=== PATIENT | male | born 1965 | race Two or more races ===

== ENCOUNTER 2023-12-25 13:23 | Observation (INO) | payer OTHER ==
[~2023-12-25] VITALS: Ht 172.7 cm; Wt 138.3 kg
[2023-12-25] MEDS: PIPERACILLIN-TAZOB 3.375GM 100 ML IV SCH
[2023-12-25 14:37] LABS: Basophils # (auto) 0.1 10 ^3/uL (0-0.2); Basophils % (auto) 0.5 % (0.0-2.0); Eosinophils # (auto) 0.1 10 ^3/uL (0-0.8); Hematocrit 47.4 % (41.0-53.0); Hemoglobin 16.6 g/dL (13.5-17.5); Lymphocytes # (auto) 3.7 10 ^3/uL (0.4-5.4); Lymphocytes % (auto) 25.3 % (10.0-50.0); Mean Corpuscular Hemoglobin 33.8 pg (28.0-32.0); Mean Corpuscular Hgb Conc. 35.1 g/dL (32.0-36.0); Mean Corpuscular Volume 96.4 fL (80.0-100.0); Monocytes # (auto) 1.3 10 ^3/uL (0-1.3); Monocytes % (auto) 8.8 % (0.0-12.0); Neutrophils # (auto) 9.3 10 ^3/uL (1.6-8.6); Neutrophils % (auto) 64.4 % (37.0-80.0); Platelet Count (auto) 221 10^3/uL (140-450); Red Blood Cells 4.92 10^6/uL (4.5-5.90); White Blood Cell 14.5 10^3/uL (4.4-10.8)
[2023-12-25 14:38] LABS: Urine Bacteria None Seen /hpf (None Seen)
[2023-12-25 14:53] LABS: Alanine Aminotransferase 28 U/L (7-40); Albumin 4.6 g/dL (3.2-4.8); Alkaline Phosphatase 104 U/L (46-116); Anion Gap 8 (5-15); Aspartate Aminotransferase 19 U/L (13-40); BUN/Creatinine Ratio 15.7 (10.0-20.0); Blood Urea Nitrogen 14 mg/dL (9-23); Calcium 10.1 mg/dL (8.7-10.4); Carbon Dioxide 28 mmol/L (20-31); Chloride 103 mmol/L (98-107); Glucose 205 mg/dL (74-106); Potassium 3.7 mmol/L (3.5-5.1); Sodium 139 mmol/L (136-145)
[2023-12-25 14:54] LABS: Bilirubin, Total 0.5 mg/dL (0.2-1.0); Total Protein 8.2 g/dL (5.7-8.2)
[2023-12-25 15:04] LABS: Urine Blood TRACE /uL (Negative); Urine Clarity Clear (Clear); Urine Color Yellow (Yellow); Urine Mucus FEW (None Seen); Urine Protein, UAD 1+ (Negative); Urine Specific Gravity 1.029 (1.001-1.035); Urine Urobilinogen 2 mg/dL (Negative); Urine WBC 4 /hpf (0 - 3)
--- NOTE | 2023-12-25 15:39 | DVH ---
Procedure: CT LS SPINE WO CONTRAST 12/25/2023 02:16 PM Indication:BILATERAL LOWER BACK PAIN. Comparison Study: None. Technique: Axial images were obtained and reformatted in coronal and sagittal planes. All CT scans at this medical facility are performed using dose modulation techniques as appropriate t o a performed exam including the following: Automated exposure control was utilized; adjustment of th e MA and/or KV according to patient size; and use of iterative reconstruction technique. CT Dose: CTDI volume is 38.94 mGy. Dose-length product is 1145.87 mGy*cm FINDINGS: Age-indeterminate severe central compression deformity of L3 with near-complete loss of height, assoc iated 4 mm retropulsion and sclerotic sclerotic changes of the bone. Vacuum phenomenon is seen L2-L3 disc space. Bridging anterior osteophytes are seen on the right and left aspects of L3-L4. The post erior elements are intact. Chronic moderate compression deformity of L1 with approximately 40% loss of height centrally status p ost vertebroplasty. No pars defect. Multilevel degenerative disc disease and posterior facet arthropathy noted with mild osseous central canal stenosis and varying degrees of neural foramina stenosis, severe in the right L 3-L4 and moderate in the left L3-L4 foramina. Atherosclerotic calcification of the abdominal aorta and iliac arteries noted. No aneurysm. An infra renal IVC filter is in place. IMPRESSION: 1. Age-indeterminate severe compression fracture of L3 with near-complete loss of height centrally, 4 mm retropulsion and sclerotic changes of the vertebral body. Correlate with history. This can be fu rther evaluated MRI if clinically warranted. 2. Chronic moderate L1 compression deformity status post vertebroplasty. No retropulsion. 3. Multilevel degenerative disc disease and posterior facet arthropathy with moderate to severe neura l foramina stenosis at L3-L4 level.
--- NOTE | 2023-12-25 15:53 | ED.PDOC ---
History of Present Illness HPI Comments This 58-year-old male presents secondary to several day history of bilateral lower back pain that radiates down the posterior aspect of both thighs legs to his feet. He denies incontinence retention the PCO urine. Denies numbness, tingling or weakness to his extremities. The pain waxes and wanes. Pain is worse with prolonged ambulation and standing is somewhat better with rest. Chief Complaint: Back Pain Time Seen by MD: 13:32 Primary Care Provider: MARILY Reviewed Notes: Nurses Notes Allergies: Coded Allergies: NO KNOWN ALLERGIES (Unverified , 12/25/23) Mode of Arrival: Ambulatory Constitutional: denies: chills, diaphoresis, fatigue, fever, malaise, sweats, weakness, others EENTM: reports: blurred vision; denies: double vision, ear bleeding, ear discharge, ear drainage, ear pain, ear ringing, eye pain, eye redness, hearing loss, mouth pain, mouth swelling, nasal discharge, nose bleeding, nose congestion, nose pain, photophobia, tearing, throat pain, throat swelling, voice changes, others Respiratory: denies: cough, hemoptysis, orthopnea, SOB at rest, shortness of breath, SOB with excertion, stridor, wheezing, others Cardiovascular: denies: chest pain, dizzy spells, diaphoresis, Dyspnea on exertion, edema, irregular heart beat, left arm pain, lightheadedness, palpitations, PND, syncope, others Gastrointestinal: denies: abdomen distended, abdominal pain, blood streaked bowels, constipated, diarrhea, dysphagia, difficulty swallowing, hematemesis, melena, nausea, poor appetite, poor fluid intake, rectal bleeding, rectal pain, vomiting, others Neurological: denies: dizziness, fainting, headache, left sided numbness, left sided weakness, numbness, paresthesia, pre-existing deficit, right sided numbness, right sided weakness, seizure, speech problems, tingling, tremors, weakness, others Musculoskeletal: reports: back pain; denies: joint pain, joint swelling, muscle pain, muscle stiffness, neck pain Physical Exam General Appearance: No Apparent Distress, Normal HEENT: Head, Normal ENT Inspection, PERRL/EOMI, Pharynx Normal, Photophobia Neck: Full Range of Motion, Non-Tender, Normal, Normal Inspection Respiratory: Chest Non-Tender, Lungs Clear, No Accessory Muscle Use, No Respiratory Distress, Normal Breath Sounds Cardiovascular: No Edema, No JVD, No Murmur, No Gallop, Normal Peripheral Pulses, Regular Rate/Rhythm Breast Exam: Deferred Gastrointestinal: No Organomegaly, Non Tender, No Pulsatile Mass, Normal Bowel Sounds, Soft Genitalia: Deferred Pelvic: Deferred Rectal: Deferred Extremities: No calf tenderness, Normal capillary refill, Normal inspection, Normal range of motion, Non-tender, No pedal edema Neurologic: Alert, care consultant II-XII nml as Tested, No Motor Deficits, Normal Affect, Normal Mood, No Sensory Deficits Cerebellar Function: Normal Reflexes: NOT DONE Skin: Dry, Normal Color, Warm Lymphatic: NOT DONE Was a procedure done? Was a procedure done?: No Differential Dx Considerations may include: cuada Equina, paraspinal abscess, sciatica, spinal stenosis X-Ray, Labs, Meds, VS Vital Signs Date Time Temp Pulse Resp B/P (MAP) Pulse Ox O2 Delivery O2 Flow Rate FiO2 12/25/23 13:33 98.9 100 18 132/98 (109) 94 Lab Test 12/25/23 14:10 12/25/23 13:36 Range/Units White Blood Count 14.5 H 4.4-10.8 10^3/uL Red Blood Count 4.92 4.5-5.90 10^6/uL Hemoglobin 16.6 13.5-17.5 g/dL Hematocrit 47.4 41.0-53.0 % Mean Corpuscular Volume 96.4 80.0-100.0 fL Mean Corpuscular Hemoglobin 33.8 H 28.0-32.0 pg Mean Corpuscular Hemoglobin Concent 35.1 32.0-36.0 g/dL Red Cell Distribution Width 14.0 11.8-14.3 % Platelet Count 221 140-450 10^3/uL Mean Platelet Volume 9.9 6.9-10.8 fL Neutrophils (%) (Auto) 64.4 37.0-80.0 % Lymphocytes (%) (Auto) 25.3 10.0-50.0 % Monocytes (%) (Auto) 8.8 0.0-12.0 % Eosinophils (%) (Auto) 1.0 0.0-7.0 % Basophils (%) (Auto) 0.5 0.0-2.0 % Neutrophils # (Auto) 9.3 H 1.6-8.6 10 ^3/uL Lymphocytes # (Auto) 3.7 0.4-5.4 10 ^3/uL Monocytes # (Auto) 1.3 0-1.3 10 ^3/uL Eosinophils # (Auto) 0.1 0-0.8 10 ^3/uL Basophils # (Auto) 0.1 0-0.2 10 ^3/uL Nucleated Red Blood Cells 0.0 % Sodium Level 139 136-145 mmol/L Potassium Level 3.7 3.5-5.1 mmol/L Chloride Level 103 98-107 mmol/L Carbon Dioxide Level 28 20-31 mmol/L Anion Gap 8 5-15 Blood Urea Nitrogen 14 9-23 mg/dL Creatinine 0.89 0.700-1.30 mg/dL Glomerular Filtration Rate Calc 99 >90 mL/min BUN/Creatinine Ratio 15.7 10.0-20.0 Serum Glucose 205 H 74-106 mg/dL Calcium Level 10.1 8.7-10.4 mg/dL Total Bilirubin 0.5 0.2-1.0 mg/dL Aspartate Amino Transferase (AST) 19 13-40 U/L Alanine Aminotransferase (ALT) 28 7-40 U/L Alkaline Phosphatase 104 46-116 U/L Total Protein 8.2 5.7-8.2 g/dL Albumin 4.6 3.2-4.8 g/dL Urine Color Yellow Yellow Urine Clarity Clear Clear Urine pH 6.0 5.0-9.0 Urine Specific [place] 1.029 1.001-1.035 Urine Protein 1+ H Negative Urine Ketones Trace Negative Urine Blood Trace H Negative /uL Urine Nitrite Negative Negative Urine Bilirubin Negative Negative Urine Urobilinogen 2 H Negative mg/dL Urine Leukocyte Esterase Negative Negative /uL Urine RBC 5 0 - 3 /hpf Urine WBC 4 0 - 3 /hpf Urine Squamous Epithelial Cells Few <5 /hpf Urine Bacteria None seen None Seen /hpf Urine Mucus Few None Seen Urine Glucose 2+ H Normal mg/dL X-Ray, Labs, Meds, VS Comment This 58-year-old male presents secondary to bilateral lower back pain that ra diates down the posterior thighs to his feet. Patient complains of pain is unclear whether not he has any weakness of extremities. Initially, the patient is very adamant that he did not. He denies incontinence or retention feces and urine. He is working. Significant for elevated white count and multiple others findings to his spine including retropulsion at 4 mm, L1 compression fracture and L3 compression fracture. He was provided with vancomycin and Zosyn certainly concerning for a possible paraspinal abscess. I discussed the patient with the hospitalist for possible admission for further workup including MRI. Time of 1ST Reevaluation: 17:29 Reevaluation 1ST: Unchanged Patient Education/Counseling: Diagnosis, Treatment, Prognosis Family Education/Counseling: No Family Present Sepsis Sepsis Reasesment Focused Exam Sepsis focused exam: focus exam completed Departure 1 Departure Time of Disposition: 17:51 Impression: Primary Impression: Lumbar radiculopathy Additional Impressions: Musculoskeletal pain Compression fracture Spinal stenosis Disposition: [facility] Condition: Fair Critical Care Note Critical Care Time?: No Stability Stability form required: No Heart Score Heart Score: Heart Score Response (Comments) Value History N/A 0 EKG N/A 0 Age N/A 0 Risk Factors N/A 0 Troponin N/A 0 Total 0 KENNEDY DEL VALLE BS Dec 25, 2023 15:53
[2023-12-25] MEDS ORDERED: VANCOMYCIN PER PHARMACY 0 MG IV SCH (18:30)
[2023-12-25] MEDS ORDERED: MORPHINE SULFATE INJ 2 MG/ml SYRG IV PRN ×2 (18:30)
[2023-12-25] MEDS ORDERED: HYDROcodone-ACET 5/325MG TAB PO PRN ×2 (18:30→23:15)
[2023-12-25] MEDS ORDERED: ACETAMINOPHEN 325 MG TAB PO PRN (18:30)
[2023-12-25] MEDS ORDERED: NITROGLYCERIN 0.4 MG SL TAB SL PRN (18:30)
[2023-12-25] MEDS ORDERED: PIPERACILLIN-TAZOB 3.375GM 100 ML IV ONE (18:30)
[2023-12-25 18:43] VITALS: PULSE 78; RESP 18; O2SAT 94
[2023-12-25] MEDS: CYCLOBENZAPRINE HCL 10 MG TAB PO ONE (18:44)
[2023-12-25] MEDS: KETOROLAC TROMETH 30 MG/ML 1ML VIAL IM ONE (18:53)
[2023-12-25] MEDS: PIPERACILLIN-TAZOB 3.375GM 100 ML IV ONE (18:54)
[2023-12-25] MEDS: VANCOMYCIN 1GM/200ML PREMIX 200 ML IV ONE (20:07)
[2023-12-25 22:39] VITALS: BP 111/64; PULSE 68; RESP 17; TEMP 97.7; O2SAT 95
[2023-12-25] MEDS ORDERED: DEXTROSE (50%) 50ML SYRG IV PRN (23:00)
[2023-12-25] MEDS ORDERED: HYDROcodone-ACET 10/325MG TAB PO PRN (23:15)
[2023-12-25] MEDS ORDERED: HYDROmorphone HCL 2 MG/ML VL/or syr IV PRN (23:15)
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
[2023-12-25] MEDS: INSULIN LANTUS (GLARGINE) 1 /0.01ml (100units/ml) SC SCH (23:39)
--- NOTE | 2023-12-26 04:27 | DVHPN2 ---
Progress Note Date Seen: Dec 26, 2023 Has the PT tested + for MRSA If YES, has PT been informed?: No Medical Necessity Reason Pt with a Central, PICC or Fol: No Subjective Review of Systems: MSK:Abnormal Objective vital signs Vital Sign Date Time Temp Pulse Resp B/P (MAP) Pulse Ox O2 Delivery O2 Flow Rate FiO2 12/25/23 22:39 Room Air* 0 21 12/25/23 22:39 97.7 68 17 111/64 (80) 95 97.7 Total Intake and Output 12/25/23 12/25/23 12/26/23 15:00 23:00 07:00 Intake Total 300 ml Balance 300 ml medications Current Medications Medications Dose Ordered Sig/Shantelle Route Start Time Stop Time Status Last Admin Dose Admin Acetaminophen 325 mg Q4HP PRN PO 12/25/23 18:30 Morphine Sulfate 2 mg Q4HPRN PRN IV 12/25/23 18:30 Nitroglycerin 0.4 mg Q5MINP PRN SL 12/25/23 18:30 Morphine Sulfate 2 mg Q30M PRN IV 12/25/23 18:30 Vancomycin HCl 0 ml @ 0 mls/hr UD IV 12/25/23 18:30 Piperacillin Sod/ Tazobactam Sod 100 ml @ 100 mls/hr Q6H IV 12/25/23 00:00 12/26/23 00:12 100 MLS/HR Vancomycin HCl 300 ml @ 200 mls/hr Q12H IV 12/26/23 08:00 Diagnostic Test (Pha) 1 strip ACHS 12/26/23 07:00 Insulin Human Regular HS SC 12/26/23 22:00 Insulin Human Regular AC SC 12/26/23 07:00 Dextrose 50 ml UD PRN IV 12/25/23 23:00 Insulin Glargine 20 units BID SC 12/25/23 23:00 12/25/23 23:39 20 UNITS Lisinopril 40 mg DAILY PO 12/26/23 10:00 Acetaminophen/ Hydrocodone Bitart 1 tab Q4HP PRN PO 12/25/23 23:15 UNV Acetaminophen/ Hydrocodone Bitart 1 tab Q4HPRN PRN PO 12/25/23 23:15 Hydromorphone HCl 0.5 mg Q6HP PRN IV 12/25/23 23:15 Examination: MSK:Abnormal laboratory and microbiology Laboratory Tests 12/25/23 14:10 Test 12/25/23 14:10 Range/Units Serum Glucose 205 H 74-106 mg/dL Problem List/Assessment/Plan Problem List/Assessment/Plan 1) L3 compression Fx, r/o osteomyelitis/discitis 2) HTN 3) DM 4) H/O DVT plan; MRI L spine pending, spine consult ordered, IV ABx broad spectrum with ID consult, daily labs, pain control, supportive care,will follow Plan discussed with: Other (n) ADDY ORTA MD Dec 26, 2023 04:27
[2023-12-26 05:00] VITALS: BP 115/71; PULSE 60; RESP 19; TEMP 97.8; O2SAT 94
[2023-12-26 05:44] LABS: Basophils # (auto) 0.1 10 ^3/uL (0-0.2); Basophils % (auto) 0.7 % (0.0-2.0); Eosinophils # (auto) 0.2 10 ^3/uL (0-0.8); Eosinophils % (auto) 2.1 % (0.0-7.0); Hematocrit 41.8 % (41.0-53.0); Hemoglobin 14.6 g/dL (13.5-17.5); Lymphocytes # (auto) 2.9 10 ^3/uL (0.4-5.4); Lymphocytes % (auto) 29.1 % (10.0-50.0); Mean Corpuscular Hemoglobin 33.9 pg (28.0-32.0); Mean Corpuscular Volume 96.9 fL (80.0-100.0); Monocytes # (auto) 1.2 10 ^3/uL (0-1.3); Monocytes % (auto) 12.2 % (0.0-12.0); Neutrophils # (auto) 5.5 10 ^3/uL (1.6-8.6); Neutrophils % (auto) 55.9 % (37.0-80.0); Nucleated Red Blood Cells % 0.1 %; Platelet Count (auto) 184 10^3/uL (140-450); Red Blood Cells 4.32 10^6/uL (4.5-5.90); White Blood Cell 9.9 10^3/uL (4.4-10.8)
[2023-12-26 06:03] LABS: Alanine Aminotransferase 23 U/L (7-40); Albumin 3.9 g/dL (3.2-4.8); Alkaline Phosphatase 82 U/L (46-116); Anion Gap 8 (5-15); Aspartate Aminotransferase 16 U/L (13-40); BUN/Creatinine Ratio 17.2 (10.0-20.0); Bilirubin, Total 0.6 mg/dL (0.2-1.0); Blood Urea Nitrogen 17 mg/dL (9-23); Calcium 9.3 mg/dL (8.7-10.4); Carbon Dioxide 30 mmol/L (20-31); Chloride 104 mmol/L (98-107); Glucose 141 mg/dL (74-106); Potassium 3.7 mmol/L (3.5-5.1); Sodium 142 mmol/L (136-145); Total Protein 6.8 g/dL (5.7-8.2)
[2023-12-26] MEDS: InsuLIN REG 1unit/0.01ml Soln (100units/ml) SC SCH (06:38)
[2023-12-26] MEDS: ACCU-CHEK COMFORT CURVE STRIP VI SCH (06:38)
[2023-12-26 07:36] LABS: Erythrocyte Sedimentation Rate 9 mm/hr (0-20)
[2023-12-26] MEDS: VANCOMYCIN 1.5GM/300ML 300 ML IV SCH (08:00)
[2023-12-26] MEDS: LISINOPRIL 20 MG TAB PO SCH (08:36)
[2023-12-26 08:46] VITALS: BP 122/80; PULSE 60; RESP 21; TEMP 97.8; O2SAT 91
--- NOTE | 2023-12-26 10:22 | DVH ---
MRI LUMBAR SPINE CLINICAL HISTORY: discitis.osteomyelitis TECHNIQUE: Multi planar, multi sequence MR images of the lumbar spine without intravenous contrast. Comparison: None FINDINGS: There is a compression deformity of the L3 vertebral body with marrow edema compatible with an acute to subacute fracture. There is approximately 60% height loss centrally within the L3 vertebral body. There is no significant posterior retropulsion. There is mild, approximately 20-25% chronic compression deformity of the L1 vertebral body with prior vertebroplasty. Is no significant retropulsion. The remaining lumbar vertebral bodies demonstrate normal height and marrow signal. The conus terminates at an appropriate level and demonstrates normal caliber and signal. There is mil dly exaggerated lumbar lordosis.. There is multilevel disc desiccation with disc space narrowing. The paraspinal soft tissues appear within normal limits. At L1-L2 there is disc bulge without canal or significant foraminal stenosis. At L2-L3 there is disc bulge and bilateral facet arthropathy. There is mild canal stenosis with inden tation of the ventral thecal sac. There is mild bilateral foraminal stenosis, [id number] . At L3-L4 there is disc bulge and bilateral facet arthropathy. There is mild canal stenosis with inden tation of the ventral thecal sac. There is moderate right and [id number] left foraminal stenosi s. At L4-L5 there is bilateral facet arthropathy with ligamentum flavum thickening. There is mild disc b ulge flattening of the ventral thecal sac. There is no canal stenosis. There is no significant fora james stenosis. L5-S1 there is bilateral facet arthropathy and mild disc bulge. Is no canal or significant foraminal stenosis. IMPRESSION: 1. There is an acute to subacute compression deformity of the L3 vertebral body with approximately 60 % height loss centrally. There is no significant posterior retropulsion into the spinal canal. 2. Mild chronic compression deformity of the L1 vertebral body with prior vertebroplasty. 3. Multilevel degenerative changes in the lumbar spine is described in detail by level above. HS:Y
[2023-12-26 11:04] LABS: INR 1.12 (0.9-1.15); Partial Thromboplastin Time 21.7 SEC (24.5-34.5); Prothrombin Time 11.8 sec (9.3-11.8)
--- NOTE | 2023-12-26 12:44 | DVHINCON2 ---
Consultation - Spinal Surgery Date Seen: Dec 26, 2023 History of Present Illness History of Present Illness this patient is admitted to the hospital with complaints of back pain without ra diation down the legs no history of trauma no f/c/night sweats no prior spine surgery no progressive neuro deficit the [place] has actually been getting better for the past few days Allergies and medications Allergies: Coded Allergies: NO KNOWN ALLERGIES (Unverified , 12/25/23) Review of systems Review of Systems: :Normal, MSK:Abnormal, NEURO:Normal Examination Vital signs Vital Signs Date Time Temp Pulse Resp B/P (MAP) Pulse Ox O2 Delivery O2 Flow Rate FiO2 12/26/23 08:46 97.8 60 21 122/80 (94) 91 97.8 12/26/23 08:06 Room Air* 0 21 Medications Current Medications Medications (Trade) Dose Ordered Sig/Shantelle Route PRN Reason Start Time Stop Time Status Last Admin Acetaminophen (Tylenol Tablet) 325 mg Q4HP PRN PO MILD PAIN (1-3 PAIN SCALE) 12/25/23 18:30 Acetaminophen/ Hydrocodone Bitart ([place] 5/325MG Tab) 1 tab Q4HP PRN PO MODERATE PAIN (4-6 PAIN SCALE) 12/25/23 18:30 12/25/23 23:27 DC Morphine Sulfate 2 mg Q4HPRN PRN IV SEVERE PAIN (7-10 PAIN SCALE) 12/25/23 18:30 Hold Nitroglycerin (Ntrostat Sublingual) 0.4 mg Q5MINP PRN SL FOR CHEST PAIN 12/25/23 18:30 Morphine Sulfate 2 mg Q30M PRN IV FOR CHEST PAIN 12/25/23 18:30 Vancomycin HCl 0 ml @ 0 mls/hr UD IV 12/25/23 18:30 Vancomycin HCl 300 ml @ 200 mls/hr Q12H IV 12/26/23 08:00 12/26/23 08:00 Diagnostic Test (Pha) (Accu-Chek Comfort Curve T) 1 strip ACHS 12/26/23 07:00 12/26/23 11:03 Insulin Human Regular (InsuLIN R) HS SC 12/26/23 22:00 Insulin Human Regular (InsuLIN R) AC SC 12/26/23 07:00 12/26/23 11:56 Dextrose 50 ml UD PRN IV Blood Sugar LESS THAN 60 12/25/23 23:00 Insulin Glargine (Lantus) 20 units BID SC 12/25/23 23:00 12/26/23 08:37 Lisinopril (Zestril Tablet) 40 mg DAILY PO 12/26/23 10:00 12/26/23 08:36 Acetaminophen/ Hydrocodone Bitart ([place] 10/325MG Tab) 1 tab Q4HP PRN PO SEVERE PAIN (7-10 PAIN SCALE) 12/25/23 23:15 Acetaminophen/ Hydrocodone Bitart ([place] 5/325MG Tab) 1 tab Q4HPRN PRN PO MODERATE PAIN (4-6 PAIN SCALE) 12/25/23 23:15 Hydromorphone HCl (Dilaudid Injection) 0.5 mg Q6HP PRN IV breakthrough pain 12/25/23 23:15 Laboratory PATIENT: JORDIN MORRIS ACCT: [id number] UNIT: [id number] : 1965 LOC: [facility] ROOM / BED: [facility]ADS / 6 AGE / SEX: 58 / M ADM STATUS: ADM IN SERVICE 6 ORDERING PHYSICIAN: ADDY ORTA MD PROCEDURE(s): MSL - LUMBAR SPINE WO CONTRAST REASON: discitis.osteomyelitis ORDER NUMBER(s): [id number], ACCESSION NUMBER(s): [id number] MRI LUMBAR SPINE CLINICAL HISTORY: discitis.osteomyelitis TECHNIQUE: Multi planar, multi sequence MR images of the lumbar spine without intravenous contrast. Comparison: None FINDINGS: There is a compression deformity of the L3 vertebral body with marrow edema compatible with an acute to subacute fracture. There is approximately 60% height loss centrally within the L3 vertebral body. There is no significant posterior retropulsion. There is mild, approximately 20-25% chronic compression deformity of the L1 vertebral body with prior vertebroplasty. Is no significant retropulsion. The remaining lumbar vertebral bodies demonstrate normal height and marrow signal. The conus terminates at an appropriate level and demonstrates normal caliber and signal. There is mildly exaggerated lumbar lordosis.. There is multilevel disc desiccation with disc space narrowing. The paraspinal soft tissues appear within normal limits. At L1-L2 there is disc bulge without canal or significant foraminal stenosis. At L2-L3 there is disc bulge and bilateral facet arthropathy. There is mild canal stenosis with indentation of the ventral thecal sac. There is mild bilateral foraminal stenosis, [id number]. At L3-L4 there is disc bulge and bilateral facet arthropathy. There is mild canal stenosis with indentation of the ventral thecal sac. There is moderate right and [id number] left foraminal stenosis. At L4-L5 there is bilateral facet arthropathy with ligamentum flavum thickening. There is mild disc bulge flattening of the ventral thecal sac. There is no canal stenosis. There is no significant foraminal stenosis. L5-S1 there is bilateral facet arthropathy and mild disc bulge. Is no canal or significant foraminal stenosis. IMPRESSION: 1. There is an acute to subacute compression deformity of the L3 vertebral body with approximately 60% height loss centrally. There is no significant posterior retropulsion into the spinal canal. 2. Mild chronic compression deformity of the L1 vertebral body with prior vertebroplasty. 3. Multilevel degenerative changes in the lumbar spine is described in detail by level above. HS:Y ATED BY: JERED SHEPPARD MD DICTATED DATE/TIME: 12/26/23 1021 SIGNED BY: JERED SHEPPARD MD SIGNED DATE/TIME: 12/26/23 1021 CC: Labs Test 12/26/23 11:09 12/26/23 10:33 12/26/23 05:14 12/25/23 14:10 Range/Units POC Glucose 176 H 70-106 mg/dl Prothrombin Time 11.8 9.3-11.8 sec Prothrombin Time INR 1.12 0.9-1.15 Activated Partial Thromboplast Time 21.7 L 24.5-34.5 SEC White Blood Count 9.9 # 4.4-10.8 10^3/uL Red Blood Count 4.32 L 4.5-5.90 10^6/uL Hemoglobin 14.6 13.5-17.5 g/dL Hematocrit 41.8 # 41.0-53.0 % Mean Corpuscular Volume 96.9 80.0-100.0 fL Mean Corpuscular Hemoglobin 33.9 H 28.0-32.0 pg Mean Corpuscular Hemoglobin Concent 35.0 32.0-36.0 g/dL Red Cell Distribution Width 14.0 11.8-14.3 % Platelet Count 184 140-450 10^3/uL Mean Platelet Volume 9.6 6.9-10.8 fL Neutrophils (%) (Auto) 55.9 37.0-80.0 % Lymphocytes (%) (Auto) 29.1 10.0-50.0 % Monocytes (%) (Auto) 12.2 H 0.0-12.0 % Eosinophils (%) (Auto) 2.1 0.0-7.0 % Basophils (%) (Auto) 0.7 0.0-2.0 % Neutrophils # (Auto) 5.5 1.6-8.6 10 ^3/uL Lymphocytes # (Auto) 2.9 0.4-5.4 10 ^3/uL Monocytes # (Auto) 1.2 0-1.3 10 ^3/uL Eosinophils # (Auto) 0.2 0-0.8 10 ^3/uL Basophils # (Auto) 0.1 0-0.2 10 ^3/uL Nucleated Red Blood Cells 0.1 % Erythrocyte Sedimentation Rate 9 0-20 mm/hr Sodium Level 142 136-145 mmol/L Potassium Level 3.7 3.5-5.1 mmol/L Chloride Level 104 98-107 mmol/L Carbon Dioxide Level 30 20-31 mmol/L Anion Gap 8 5-15 Blood Urea Nitrogen 17 9-23 mg/dL Creatinine 0.99 0.700-1.30 mg/dL Glomerular Filtration Rate Calc 88 >90 mL/min BUN/Creatinine Ratio 17.2 10.0-20.0 Serum Glucose 141 H 74-106 mg/dL Calcium Level 9.3 8.7-10.4 mg/dL Total Bilirubin 0.6 0.2-1.0 mg/dL Aspartate Amino Transferase (AST) 16 13-40 U/L Alanine Aminotransferase (ALT) 23 7-40 U/L Alkaline Phosphatase 82 46-116 U/L C-Reactive Protein High Sensitivity 1.85 H <1.0 mg/dL Total Protein 6.8 5.7-8.2 g/dL Albumin 3.9 3.2-4.8 g/dL Hemoglobin A1c 7.7 H <5.7 % A1C Test 12/25/23 13:36 Range/Units Urine Color Yellow Yellow Urine Clarity Clear Clear Urine pH 6.0 5.0-9.0 Urine Specific [place] 1.029 1.001-1.035 Urine Protein 1+ H Negative Urine Ketones Trace Negative Urine Blood Trace H Negative /uL Urine Nitrite Negative Negative Urine Bilirubin Negative Negative Urine Urobilinogen 2 H Negative mg/dL Urine Leukocyte Esterase Negative Negative /uL Urine RBC 5 0 - 3 /hpf Urine WBC 4 0 - 3 /hpf Urine Squamous Epithelial Cells Few <5 /hpf Urine Bacteria None seen None Seen /hpf Urine Mucus Few None Seen Urine Glucose 2+ H Normal mg/dL Examination: GENERAL:Normal, HEENT:Normal, NECK:Normal, LUNGS:Normal, CVS:Normal, ABDOMEN:Normal, MSK:Normal, MSK:Abnormal (tenderness over the lumbar paraspinal muscles), SKIN:Normal, NEURO:Normal, :Normal Problem List/Assessment/Plan Problems: (1) Compression fracture Assessment and Plan Sub acute compression fracture of lumbar 2 It is likely that this injury is several weeks old This is not a surgical injury the fractures usually heal within 13 weeks He can weight bear as tolerated He would benefit from a TLSO brace that decreases the pain and allows the patient to be more vigorous with his daily routin while the fracture is healing. It is not necessary to get brace in hospital and can be arranged as an outpatient. Plan discussed with Plan discussed with: Other CLAUDY WALLER MD Dec 26, 2023 12:44
[2023-12-26 12:49] VITALS: BP 109/71; PULSE 62; RESP 19; TEMP 98; O2SAT 97
[2023-12-26 12:55] VITALS: BP 122/80; TEMP 36.7
--- NOTE | 2023-12-26 13:01 | DVHDS2 ---
New Physician D'charge PN Admitting Diagnosis Admitting Diagnosis lumbar compression Fx Discharge Diagnosis lumbar compression fx Operations or Procedures none Reason(s) For Hospitalization Surgery Hospital Course 58 M who comes to ER for back pain and CT L spine showed L3 compression fx please refer to the CT report for more details. The patient was admitted and there was a concern for osteomyelitis/discitis and this spine surgery was consulted and recommended MRI L spine which again revealed the compression fracture lumbar spine however there was no evidence of discitis or osteomyelitis. He has been cleared by spine surgery to dc home. TLSO brace has been recommended and will be delivered to the patients house. As per spine surgery not necessary for the brace to be delivered to hospital before discharge and he can be weight bearing as tolerated and heritage to arrange for outpt spine follow up and TLSO brace to be delivered to patients home as recommended. Treatment Plan Discharge Condition of Discharge Fair Disposition Home with Health Services Discharge Instructions Diet: Consistent carbohydrate, Cardiac 2g Na,low cholest Activity: Light activity Medications: see med sheet Follow Up Care Follow Up/Referral: pcp Discharge Statement: "Patient was advised to return to the ER or call 911 if any headaches, dizziness, shortness of breath, chest pain, abdominal pain, bleeding, fevers, or worsening of medical condition. Patient was counseled about treatment plan, medications, possible side effects, patientverbalized understanding. All questions were answered to the best of my ability. This discharge took greater then 30 minutes in planning, reviewing documentation, counseling the patient, and discussing with other team members." ADDY ORTA MD Dec 26, 2023 13:01
[2023-12-26] MEDS ORDERED: InsuLIN REG 1unit/0.01ml Soln (100units/ml) SC SCH (22:00)
== END 2023-12-26 15:00 | disposition home or self-care (01) ==
LOC: ER 13:23 → INTOOBSV 18:26 → OVERFLOW 18:26 → EAST 22:30
PROVIDERS: ADMIT Student in an Organized Health Care Education/Training Program; ATTEND Student in an Organized Health Care Education/Training Program
DX: M48.56XA Collapsed vertebra, not elsewhere classified, lumbar region, initial encounter for fracture (principal); M47.26 Other spondylosis with radiculopathy, lumbar region; M46.40 Discitis, unspecified, site unspecified; M86.9 Osteomyelitis, unspecified; E11.9 Type 2 diabetes mellitus without complications; I10 Essential (primary) hypertension; E66.01 Morbid (severe) obesity due to excess calories; Z79.4 Long term (current) use of insulin; Z79.899 Other long term (current) drug therapy; Z86.718 Personal history of other venous thrombosis and embolism; Z68.42 Body mass index [BMI] 45.0-49.9, adult
CPT/HCPCS: 36415; 72131; 72148; 80053; 81001; 82962; 83036; 85025; 85610; 85652; 85730; 86141; 87040; 96365; 96366; 96368; 96372; 99284; G0378; J1815; J1885; J2543; J3370; J3372; J7030